=== PATIENT | female | born 1980 | race Caucasian/White ===

== ENCOUNTER → 2016-07-04 | Outpatient (CLI) | payer OTHER | LOC: CT 08:46 | DX: K45.8 Other specified abdominal hernia without obstruction or gangrene (principal) | CPT/HCPCS: 74170; J7050; Q9962 ==

== ENCOUNTER → 2016-09-17 | Outpatient (CLI) | payer OTHER | LOC: CT 07:23 | DX: J32.8 Other chronic sinusitis (principal) | CPT/HCPCS: 70486 ==

== ENCOUNTER → 2020-05-13 | Outpatient (CLI) | payer MEDICARE, OTHER ==
[~2020-05-13] MED LIST: BENTYL 20MG TAB20 MG PO; DITROPAN 5 MG TA5 MG PO; DOCUSATE SODIU250 MG PO; HYDROCODONE-AC1 EACH PO; IBUPROFEN600 MG PO; KEFLEX CAP 500500 MG PO; SPRINTEC 28 DA1 EACH PO; SYNTHROID125 MCG PO
[2020-05-13 08:58] LABS: HEMOGLOBIN 12.7 gm/dl (12.3-15.3); RED BLOOD COUNT 4.63 M/UL (4.00-5.10); WHITE BLOOD COUNT 6.2 K/UL (4.5-11.0)
[2020-05-13 09:13] LABS: BUN/CREATININE RATIO 24 (0-10)
[2020-05-14 07:09] LABS: VITAMIN D, 25-HYDROXY 23.6 ng/mL (30.0-100.0)
[2020-05-14 09:10] LABS: ANTISTREPTOLYSIN O AB 173.6 IU/mL (0.0-200.0); RHEUMATOID ARTHRITIS FACTOR <10.0 IU/mL (0.0-13.9)
[2020-05-16 23:09] LABS: CCP ANTIBODIES IGG/IGA <1 units (0-19)
== END ==
LOC: LAB 08:05
PROVIDERS: Nurse Practitioner
DX: Z00.01 Encounter for general adult medical examination with abnormal findings (principal); R53.83 Other fatigue; R73.09 Other abnormal glucose; E03.9 Hypothyroidism, unspecified; E55.9 Vitamin D deficiency, unspecified; M79.10 Myalgia, unspecified site; R12 Heartburn; Z79.899 Other long term (current) drug therapy
CPT/HCPCS: 36415; 80053; 80061; 82607; 82746; 83036; 83735; 84436; 84439; 84443; 84550; 85025; 85652; 86038; 86060; 86140; 86200; 86431

== ENCOUNTER → 2020-07-27 | Outpatient (CLI) | payer MEDICARE, OTHER ==
[2020-07-27 10:55] LABS: HEMOGLOBIN 11.8 gm/dl (12.3-15.3); RED BLOOD COUNT 4.42 M/UL (4.00-5.10); WHITE BLOOD COUNT 5.3 K/UL (4.5-11.0)
== END ==
LOC: OPSV2 10:08
PROVIDERS: Obstetrics & Gynecology
DX: N93.9 Abnormal uterine and vaginal bleeding, unspecified (principal)
CPT/HCPCS: 36415; 85025; 93005

== ENCOUNTER → 2020-08-07 | Day surgery (SDC) | payer MEDICARE, OTHER | END | disposition home or self-care (01) | LOC: OR 06:45 | DX: N72 Inflammatory disease of cervix uteri (principal); N80.0 Endometriosis of uterus; M79.7 Fibromyalgia; E66.01 Morbid (severe) obesity due to excess calories; G47.30 Sleep apnea, unspecified; J45.909 Unspecified asthma, uncomplicated; E03.9 Hypothyroidism, unspecified; D64.9 Anemia, unspecified; Z68.36 Body mass index [BMI] 36.0-36.9, adult; Z87.891 Personal history of nicotine dependence; Z88.1 Allergy status to other antibiotic agents | CPT/HCPCS: 84703; C1769; J1100; J1580; J2001; J2250; J2405; J2704; J2710; J3010; J7120 ==

== ENCOUNTER → 2020-11-01 | Outpatient (CLI) | payer MEDICARE, OTHER ==
[2020-11-02 08:14] LABS: RHEUMATOID ARTHRITIS FACTOR <10.0 IU/mL (0.0-13.9)
== END ==
LOC: LAB 10:32
PROVIDERS: Nurse Practitioner Family
DX: M79.643 Pain in unspecified hand (principal); D89.9 Disorder involving the immune mechanism, unspecified; M25.50 Pain in unspecified joint; R76.8 Other specified abnormal immunological findings in serum; D64.9 Anemia, unspecified; M79.10 Myalgia, unspecified site
CPT/HCPCS: 36415; 73130; 82550; 82728; 83520; 85652; 86140; 86200; 86431

== ENCOUNTER → 2021-05-02 | Outpatient (CLI) | payer MEDICARE, OTHER | LOC: KOH-I 11:01 | DX: E04.2 Nontoxic multinodular goiter (principal); R09.89 Other specified symptoms and signs involving the circulatory and respiratory systems; R07.0 Pain in throat; E66.9 Obesity, unspecified; Z68.38 Body mass index [BMI] 38.0-38.9, adult | CPT/HCPCS: 76536 ==

== ENCOUNTER → 2021-05-25 | Outpatient (CLI) | payer MEDICARE, OTHER | END | disposition home or self-care (01) | LOC: US 09:24 | DX: E04.2 Nontoxic multinodular goiter (principal) ==

== ENCOUNTER → 2021-10-01 | Outpatient (CLI) | payer MEDICARE, OTHER | LOC: EXRD 15:04 | DX: E04.9 Nontoxic goiter, unspecified (principal); R09.89 Other specified symptoms and signs involving the circulatory and respiratory systems; R07.0 Pain in throat; Z68.38 Body mass index [BMI] 38.0-38.9, adult; E66.9 Obesity, unspecified | CPT/HCPCS: 76536 ==

== ENCOUNTER → 2021-10-09 | Outpatient (CLI) | payer MEDICARE, OTHER ==
[2021-10-09 09:47] LABS: HEMOGLOBIN 12.2 gm/dl (12.3-15.3); RED BLOOD COUNT 4.76 M/UL (4.00-5.10); WHITE BLOOD COUNT 3.8 K/UL (4.5-11.0)
[2021-10-09 10:25] LABS: BUN/CREATININE RATIO 26 (0-10)
== END ==
LOC: LAB 09:12
PROVIDERS: Surgery
DX: E04.2 Nontoxic multinodular goiter (principal)
CPT/HCPCS: 36415; 80048; 85025

== ENCOUNTER → 2021-12-03 | Outpatient (CLI) | payer MEDICARE, OTHER | LOC: EMI 08:27 | DX: G44.59 Other complicated headache syndrome (principal) | CPT/HCPCS: 70551 ==